=== PATIENT | male | born 1950 | race Caucasian/White ===

== ENCOUNTER → 2020-04-12 | Day surgery (SDC) | payer OTHER ==
[~2020-04-12] MED LIST: ATORVASTATIN CA40 MG PO; BUSPIRONE HCL15 M1 PO; CYCLOBENZAPRINE10 MG PO; DICLOFENAC SODI75 MG PO; GABAPENTIN300 MG PO; GLIMEPIRIDE4 MG PO; LEVOTHYROXINE100 MCG PO; OMEPRAZOLE 20MG20 MG PO; OXYCODONE-ACET1 EAC1 PO; PHENYTOIN SODI100 MG PO; SERTRALINE HCL100 MG PO; VITAMIN D21250 MCG PO
== END | disposition home or self-care (01) ==
LOC: FAS 12:12
DX: H25.813 Combined forms of age-related cataract, bilateral (principal); H40.9 Unspecified glaucoma; M19.90 Unspecified osteoarthritis, unspecified site; E11.9 Type 2 diabetes mellitus without complications; E03.9 Hypothyroidism, unspecified; F41.9 Anxiety disorder, unspecified; K21.9 Gastro-esophageal reflux disease without esophagitis; Z87.891 Personal history of nicotine dependence; Z79.84 Long term (current) use of oral hypoglycemic drugs; Z79.899 Other long term (current) drug therapy
CPT/HCPCS: J2250; V2632